=== PATIENT | female | born 1985 | race Caucasian/White ===

== ENCOUNTER 2020-07-20 17:52 | Observation (INO) ==
[2020-07-20] MEDS ORDERED: MORPHINE 4 MG/1 ML VIAL IV STA (18:20)
[2020-07-20] MEDS ORDERED: ONDANSETRON 4 MG/2 ML VIAL IV ONE (18:20)
[2020-07-20] MEDS ORDERED: SODIUM CHLORIDE 0.9% 1,000 ML IV STA (18:37)
[2020-07-20 18:46] LABS: Basophils # 0.1 10*3/uL (0.0-0.2); Basophils % 0.5 % (0.0-0.8); Eosinophils # 0.2 10*3/uL (0.0-0.87); Hematocrit 38.8 VOL% (35.7-47.0); Hemoglobin 12.9 GM/DL (12.0-16.0); Immature Granulocytes % 0.5 %; Immature Granulocytes Absolute 0.11 #; Lymphocytes # 2.3 10*3/uL (1.4-4.0); Lymphocytes % 10.9 % (21.3-54.2); Mean Corpuscular HGB Conc 33.2 GM/DL (32-36); Mean Corpuscular Volume 95.6 FL (87-102); Mean Platelet Volume 9.8 FL (9.6-12.0); Monocytes % 6.3 % (1.7-12.7); Neutrophils % 80.8 % (38.7-73.9); Platelet Count 511 T/CUMM (130-400); Red Blood Count 4.06 MC/CUMM (3.8-5.5); Red Cell Distribution Width 11.9 % (9.3-17.3); White Blood Count 21.1 T/CUMM (4-12)
[2020-07-20 18:56] LABS: Albumin 3.3 G/DL (3.4-5.0); Bilirubin,Total 0.4 MG/DL (0.2-1.0); Calcium 9.4 MG/DL (8.5-10.1); Total Protein 8.3 G/DL (6.4-8.3)
[2020-07-20 18:58] LABS: Apearance,Urine CLOUDY (Clear); Bacteria,Urine Occasional /HPF (Few); Bilirubin,Urine Negative (Negative); Blood, Urine Moderate mg/dL (Negative); Glucose,Urine (UA) Negative (Negative); Ketones,Urine Negative (Negative); Nitrite,Urine Negative (Negative); Protein,Urine Negative; RBC,Urine 8 /HPF (0-4); Squamous Epithelial Cell,Urine Occasional /HPF (0-10); Urine Color Red (Yellow); Urine Specific Gravity 1.004 (1.001-1.035); Urine Urobilinogen < 2.0 EU/DL (0.2-1.0); WBC,Urine 35 /HPF (0-6)
[2020-07-20 19:14] LABS: Eosinophils 1 % (0-10); Lymphocytes 12 % (20-55); Segmented Neutrophils 85 % (50-85); Total Cells Counted 100
[2020-07-20 19:15] LABS: Platelet Estimate Increased
[2020-07-20] MEDS ORDERED: cefTRIAXone 1,000 MG in SODIUM CHLORIDE 0.9% 100 ML IV STA (19:30)
[2020-07-20] MEDS ORDERED: ZALEPLON 5 MG CAPSULE PO PRN (20:20)
[2020-07-20] MEDS ORDERED: NICOTINE 21 MG/24 HR PATCH TRANSDERM PRN (20:20)
[2020-07-20] MEDS ORDERED: DOCUSATE SODIUM 100 MG CAPSULE PO PRN (20:20)
[2020-07-20] MEDS ORDERED: PROMETHAZINE 25 MG/1 ML VIAL IM PRN (20:40)
[2020-07-20] MEDS: LEVOFLOXACIN INJ 500 MG in PREMIX 1 EACH IV SCH (22:49)
[2020-07-20] MEDS: SODIUM CHLORIDE 0.9% 1,000 ML IV SCH (22:49)
[2020-07-20] MEDS: ACETAMINOPHEN 325 MG TABLET PO PRN (22:50)
[2020-07-20] MEDS: HYDROmorphone 2 MG/1 ML VIAL IV PRN (22:51)
[2020-07-21] MEDS: ONDANSETRON 4 MG/2 ML VIAL IV PRN ×5 (03:23→21:41)
[2020-07-21] MEDS: HYDROmorphone 2 MG/1 ML VIAL IV PRN ×5 (03:24→21:42)
[2020-07-21 06:32] LABS: Basophils # 0.1 10*3/uL (0.0-0.2); Basophils % 0.6 % (0.0-0.8); Eosinophils # 0.2 10*3/uL (0.0-0.87); Eosinophils % 1.4 % (0.00-10.9); Hematocrit 33.5 VOL% (35.7-47.0); Hemoglobin 11.2 GM/DL (12.0-16.0); Immature Granulocytes % 0.3 %; Immature Granulocytes Absolute 0.04 #; Lymphocytes # 2.8 10*3/uL (1.4-4.0); Lymphocytes % 18.7 % (21.3-54.2); Mean Corpuscular HGB Conc 33.4 GM/DL (32-36); Mean Corpuscular Volume 95.7 FL (87-102); Mean Platelet Volume 9.3 FL (9.6-12.0); Monocytes % 11.9 % (1.7-12.7); Neutrophils % 67.1 % (38.7-73.9); Platelet Count 413 T/CUMM (130-400); Red Cell Distribution Width 11.9 % (9.3-17.3); White Blood Count 14.7 T/CUMM (4-12)
[2020-07-21 07:01] LABS: Albumin 2.6 G/DL (3.4-5.0); Bilirubin,Total 1.7 MG/DL (0.2-1.0); Calcium 8.8 MG/DL (8.5-10.1); Osmolality,Calculated 270.7 MOS/KG (273-304)
[2020-07-21] MEDS: SODIUM CHLORIDE 0.9% 1,000 ML IV SCH ×3 (08:19→17:41)
[2020-07-21] MEDS: ACETAMINOPHEN 325 MG TABLET PO PRN ×2 (08:55→19:12)
[2020-07-21 11:26] LABS: Hepatitis B Core IgM Quant 0.25 Index; Hepatitis B Surface Ag Quant < 0.10 Index; Hepatitis B Surface Ag Result Negative (Negative); Hepatitis C Virus Ab Quant 0.05 Index; Hepatitis C Virus Ab Result Negative (Negative)
[2020-07-21] MEDS: LEVOFLOXACIN INJ 500 MG in PREMIX 1 EACH IV SCH (21:44)
[2020-07-22] MEDS: HYDROmorphone 2 MG/1 ML VIAL IV PRN ×6 (01:39→22:51)
[2020-07-22] MEDS: ONDANSETRON 4 MG/2 ML VIAL IV PRN ×4 (01:40→22:50)
[2020-07-22] MEDS: SODIUM CHLORIDE 0.9% 1,000 ML IV SCH ×2 (03:36→14:55)
[2020-07-22 06:00] LABS: Basophils # 0.1 10*3/uL (0.0-0.2); Basophils % 0.7 % (0.0-0.8); Eosinophils # 0.3 10*3/uL (0.0-0.87); Eosinophils % 2.4 % (0.00-10.9); Hematocrit 31.8 VOL% (35.7-47.0); Hemoglobin 10.2 GM/DL (12.0-16.0); Immature Granulocytes % 0.5 %; Immature Granulocytes Absolute 0.06 #; Lymphocytes # 2.6 10*3/uL (1.4-4.0); Lymphocytes % 21.3 % (21.3-54.2); Mean Corpuscular HGB Conc 32.1 GM/DL (32-36); Mean Corpuscular Volume 99.4 FL (87-102); Mean Platelet Volume 9.8 FL (9.6-12.0); Monocytes % 12.8 % (1.7-12.7); Neutrophils % 62.3 % (38.7-73.9); Platelet Count 419 T/CUMM (130-400); Red Cell Distribution Width 11.9 % (9.3-17.3); White Blood Count 12.2 T/CUMM (4-12)
[2020-07-22 06:29] LABS: Albumin 2.5 G/DL (3.4-5.0); Bilirubin,Total 1.4 MG/DL (0.2-1.0); Calcium 8.9 MG/DL (8.5-10.1); Osmolality,Calculated 276.4 MOS/KG (273-304); Total Protein 6.7 G/DL (6.4-8.3)
[2020-07-22] MEDS: cefTRIAXone 1,000 MG in SYRINGE 1 EACH IV SCH (09:50)
[2020-07-22] MEDS ORDERED: NICOTINE 14 MG/24 HR PATCH TRANSDERM PRN (23:42)
[2020-07-23] MEDS: SODIUM CHLORIDE 0.9% 1,000 ML IV SCH ×2 (01:30→10:35)
[2020-07-23] MEDS: HYDROmorphone 2 MG/1 ML VIAL IV PRN ×2 (03:28→08:49)
[2020-07-23 08:23] LABS: Basophils # 0.1 10*3/uL (0.0-0.2); Basophils % 0.6 % (0.0-0.8); Eosinophils # 0.4 10*3/uL (0.0-0.87); Eosinophils % 3.2 % (0.00-10.9); Hematocrit 31.7 VOL% (35.7-47.0); Hemoglobin 10.6 GM/DL (12.0-16.0); Immature Granulocytes % 0.3 %; Immature Granulocytes Absolute 0.04 #; Lymphocytes # 2.1 10*3/uL (1.4-4.0); Mean Corpuscular HGB Conc 33.4 GM/DL (32-36); Mean Corpuscular Volume 95.5 FL (87-102); Mean Platelet Volume 9.3 FL (9.6-12.0); Monocytes % 10.8 % (1.7-12.7); Neutrophils % 68.1 % (38.7-73.9); Platelet Count 410 T/CUMM (130-400); Red Blood Count 3.32 MC/CUMM (3.8-5.5); Red Cell Distribution Width 11.9 % (9.3-17.3); White Blood Count 12.3 T/CUMM (4-12)
[2020-07-23 08:37] LABS: Albumin 2.7 G/DL (3.4-5.0); Bilirubin,Total 1.4 MG/DL (0.2-1.0); Calcium 9.1 MG/DL (8.5-10.1); Osmolality,Calculated 274.4 MOS/KG (273-304); Total Protein 7.3 G/DL (6.4-8.3)
[2020-07-23] MEDS: ONDANSETRON 4 MG/2 ML VIAL IV PRN (08:50)
[2020-07-23] MEDS: cefTRIAXone 1,000 MG in SYRINGE 1 EACH IV SCH (09:06)
[2020-07-23 11:59] VITALS: BP 126/73
== END 2020-07-23 12:05 | disposition home or self-care (01) ==
LOC: N.EDINP 17:52 → N.ED 17:52 → N.3E 22:00
PROVIDERS: ADMIT Internal Medicine; ATTEND Internal Medicine

== ENCOUNTER 2020-07-29 18:18 | Observation (INO) ==
[2020-07-29 21:47] LABS: Apearance,Urine Slightly Hazy (Clear); Bilirubin,Urine Negative (Negative); Blood, Urine Small mg/dL (Negative); Glucose,Urine (UA) Negative (Negative); Ketones,Urine Negative (Negative); Mucus,Urine Occasional /LPF (Occasional); Nitrite,Urine Negative (Negative); Protein,Urine Negative; RBC,Urine 15 /HPF (0-4); Squamous Epithelial Cell,Urine Occasional /HPF (0-10); Urine Color Yellow (Yellow); Urine Specific Gravity 1.004 (1.001-1.035); Urine Urobilinogen < 2.0 EU/DL (0.2-1.0); WBC,Urine 125 /HPF (0-6)
[2020-07-29 21:53] LABS: Barbiturates Screen,Urine Negative (Negative); Benzodiazepines Screen,Urine Negative (Negative); Cannabinoid Screen,Urine Negative (Negative); Opiate Screen,Urine Negative (Negative); Phencyclidine Screen,Urine Negative (Negative)
[2020-07-29] MEDS ORDERED: SODIUM CHLORIDE 0.9% 1,000 ML IV STA (23:31)
[2020-07-29] MEDS ORDERED: ONDANSETRON 4 MG/2 ML VIAL IV STA (23:31)
[2020-07-29] MEDS ORDERED: KETOROLAC 30 MG/1 ML VIAL IV STA (23:31)
[2020-07-30 00:42] LABS: Alanine Aminotransferase 31 U/L (13-56); Albumin 3.3 G/DL (3.4-5.0); Alkaline Phosphatase 317 U/L (45-117); Aspartate Amino Transferase 17 U/L (0-37); Bilirubin,Total < 0.39 MG/DL (0.2-1.0); Blood Urea Nitrogen 4 MG/DL (7-18); Calcium 9.6 MG/DL (8.5-10.1); Estimated Glom Filtration Rate 89 ML/MIN; Glucose 90 MG/DL (74-106); Osmolality,Calculated 271.7 MOS/KG (273-304); Total Protein 8.2 G/DL (6.4-8.3)
[2020-07-30 01:12] LABS: Basophils # 0.1 10*3/uL (0.0-0.2); Basophils % 1.2 % (0.0-0.8); Eosinophils # 0.5 10*3/uL (0.0-0.87); Eosinophils % 3.8 % (0.00-10.9); Hematocrit 38.3 VOL% (35.7-47.0); Hemoglobin 12.8 GM/DL (12.0-16.0); Immature Granulocytes % 0.6 %; Immature Granulocytes Absolute 0.07 #; Lymphocytes # 3.8 10*3/uL (1.4-4.0); Mean Corpuscular HGB Conc 33.4 GM/DL (32-36); Mean Platelet Volume 9.6 FL (9.6-12.0); Monocytes % 9.3 % (1.7-12.7); Neutrophils % 53.1 % (38.7-73.9); Platelet Count 562 T/CUMM (130-400); Red Blood Count 4.03 MC/CUMM (3.8-5.5); White Blood Count 11.8 T/CUMM (4-12)
[2020-07-30] MEDS ORDERED: MORPHINE 4 MG/1 ML VIAL IV STA (03:05)
[2020-07-30] MEDS ORDERED: cefTRIAXone 1,000 MG in SODIUM CHLORIDE 0.9% 100 ML IV STA (03:06)
[2020-07-30] MEDS ORDERED: NICOTINE 21 MG/24 HR PATCH TRANSDERM PRN (04:01)
[2020-07-30] MEDS ORDERED: DEXTROSE 50% 25 GM/50 ML VIAL IV PRN (04:01)
[2020-07-30] MEDS ORDERED: ACETAMINOPHEN 325 MG TABLET PO PRN (04:01)
[2020-07-30] MEDS ORDERED: GLUCAGON 1 MG VIAL IM PRN (04:01)
[2020-07-30] MEDS ORDERED: hydrALAZINE 20 MG/1 ML VIAL IV PRN (04:01)
[2020-07-30] MEDS: SODIUM CHLORIDE 0.9% 1,000 ML IV SCH ×2 (04:26→18:02)
[2020-07-30] MEDS: ONDANSETRON 4 MG/2 ML VIAL IV PRN ×2 (06:23→12:03)
[2020-07-30] MEDS: MORPHINE 4 MG/1 ML VIAL IV PRN ×4 (08:49→21:59)
[2020-07-30 12:18] LABS: Apearance,Urine Slightly Hazy (Clear); Bacteria,Urine Occasional /HPF (Few); Bilirubin,Urine Negative (Negative); Blood, Urine Small mg/dL (Negative); Glucose,Urine (UA) Negative (Negative); Ketones,Urine Negative (Negative); Mucus,Urine Occasional /LPF (Occasional); Nitrite,Urine Negative (Negative); Protein,Urine Negative; RBC,Urine 13 /HPF (0-4); Squamous Epithelial Cell,Urine Occasional /HPF (0-10); Urine Color Yellow (Yellow); Urine Specific Gravity 1.003 (1.001-1.035); Urine Urobilinogen < 2.0 EU/DL (0.2-1.0); WBC,Urine 61 /HPF (0-6)
[2020-07-30] MEDS: PROMETHAZINE 25 MG/1 ML VIAL IM PRN ×2 (16:47→22:00)
[2020-07-31] MEDS: MORPHINE 4 MG/1 ML VIAL IV PRN ×4 (01:47→14:10)
[2020-07-31] MEDS: SODIUM CHLORIDE 0.9% 1,000 ML IV SCH ×4 (01:52→14:11)
[2020-07-31] MEDS ORDERED: IBUPROFEN 800 MG TABLET PO ONE (04:23)
[2020-07-31] MEDS ORDERED: cefTRIAXone 1,000 MG in SYRINGE 1 EACH IV SCH (04:30)
[2020-07-31 06:25] LABS: Basophils # 0.1 10*3/uL (0.0-0.2); Eosinophils # 0.4 10*3/uL (0.0-0.87); Eosinophils % 3.5 % (0.00-10.9); Hematocrit 31.7 VOL% (35.7-47.0); Hemoglobin 10.4 GM/DL (12.0-16.0); Immature Granulocytes % 0.4 %; Immature Granulocytes Absolute 0.04 #; Lymphocytes # 3.7 10*3/uL (1.4-4.0); Lymphocytes % 35.6 % (21.3-54.2); Mean Corpuscular HGB Conc 32.8 GM/DL (32-36); Mean Corpuscular Volume 95.5 FL (87-102); Mean Platelet Volume 9.4 FL (9.6-12.0); Monocytes % 9.2 % (1.7-12.7); Neutrophils % 50.3 % (38.7-73.9); Platelet Count 423 T/CUMM (130-400); Red Blood Count 3.32 MC/CUMM (3.8-5.5); White Blood Count 10.5 T/CUMM (4-12)
[2020-07-31 06:58] LABS: Albumin 2.2 G/DL (3.4-5.0); Bilirubin,Total 1.2 MG/DL (0.2-1.0); Calcium 7.8 MG/DL (8.5-10.1); Osmolality,Calculated 281.8 MOS/KG (273-304); Total Protein 5.8 G/DL (6.4-8.3)
[2020-07-31 07:07] LABS: Microcytosis 1+
[2020-07-31 07:08] LABS: Hypochromasia Slight; Platelet Estimate Increased
[2020-07-31] MEDS: ONDANSETRON 4 MG/2 ML VIAL IV PRN ×2 (09:54→14:10)
[2020-07-31 12:33] VITALS: BP 113/75
== END 2020-07-31 17:22 | disposition home or self-care (01) ==
LOC: N.EDINP 18:18 → N.ED 18:18 → SUATTDRO 07-30 04:01 → N.3E 07-30 04:42
PROVIDERS: ADMIT Emergency Medicine; ATTEND Internal Medicine